=== PATIENT | female | born 1970 | race Caucasian/White ===

== ENCOUNTER 2022-11-07 09:29 | Outpatient (OUT) | payer OTHER, SELFPAY ==
--- NOTE | 2022-11-07 09:32 | P.CN_ITS ---
Consult Note: HPI Data of Consult Patient: known to practice within the last 3 years Consult date: 11/07/22 Requesting Physician: VICK LINDSAY NP Primary Care Provider: Non-Staff Physician, MD Consult Narrative Narrative: Patient is here for f/u of neck pain . MRI and PT was ordered. Patient never went to PT. Pain today is in both sides of neck and shoulders . No radicular sx. No new sensorimotor or bowel or bladder issues. No adverse medication SE. Medication regimen assists patient with being better able to complete ADLs. We d iscussed following through with PT this time in order to get MRI. No MRI on file. She is in agreement. cc:: CC: VICK LINDSAY NP Review of Systems ROS Status of ROS 10 or more systems reviewed and unremarkable except as noted in history and below Musculoskeletal Reports: neck pain Exam Constitutional Documenting provider has reviewed patient's vital signs: yes Common normals: no apparent distress, average body habitus, oriented x3, healthy appearing, alert and well nourished General appearance: cooperative, comfortable and well developed Orientation/consciousness: Yes awake, Yes oriented to person, Yes oriented to place and Yes oriented to time HENMT Common normals: normocephalic and moist oral mucous membranes Respiratory Common normals: normal respiratory effort, no retractions and no use of accessory muscles Effort & inspection: able to speak in complete sentences and symmetric chest movement Back & Pelvis Other: muscle strength 4/5 bilat UE with intact sensation no arm drift cervical pain with all ROM heaviness to bilat upper arms. Extremity Common normals: normal to inspection, full ROM and normal capillary refill Assessment and Plan Assessment and Plan (1) Cervical spondylosis: (2) Muscle spasm: Plan PT and c-spine MRI
== END 2022-11-07 09:30 | disposition home or self-care (01) ==
PROVIDERS: Visit Provider Nurse Practitioner
DX: M54.2 Cervicalgia (principal); M25.512 Pain in left shoulder; M25.511 Pain in right shoulder; M47.812 Spondylosis without myelopathy or radiculopathy, cervical region; M62.838 Other muscle spasm
CPT/HCPCS: G0463

== ENCOUNTER 2022-11-11 13:39 | Outpatient (RCR) | payer OTHER, SELFPAY | END 2022-12-12 15:39 | disposition home or self-care (01) | LOC: PT 13:39 | PROVIDERS: Visit Provider Nurse Practitioner | DX: M47.812 Spondylosis without myelopathy or radiculopathy, cervical region (principal) | CPT/HCPCS: 97110; 97161 ==

== ENCOUNTER 2024-10-29 12:27 | Emergency (ER) | payer OTHER, SELFPAY ==
[2024-10-29 12:31] VITALS: BP 151/78; PULSE 109; TEMP 36.4; O2SAT 97; BMI 21.1
--- NOTE | 2024-10-29 12:41 | ED.GENADUL1 ---
HPI HPI - General Adult General Chief complaint: Anxiety Stated complaint: ANXIETY Time Seen by Provider: 10/29/24 12:33 Source: patient Mode of arrival: walk-in Limitations: no limitations History of Present Illness HPI narrative: 54-year-old female presents for anxiety. She is not suicidal. She has been under a lot of stress recently because she states her apartment and the whole building and is infested with bedbugs. She has been leaving sometimes during the day but not sleeping elsewhere, she is sleeping in her apartment. She does not have any bedbug bites right now but she sees them in her home. 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 Related Data Home Medications �Medication �Instructions �Recorded �Confirmed atorvastatin 40 mg tablet 40 mg PO DAILY 11/07/22 10/29/24 canagliflozin 300 mg tablet 300 mg PO DAILY 11/07/22 10/29/24 (Invokana) celecoxib 100 mg capsule (Celebrex) 100 mg PO BID 11/07/22 10/29/24 citalopram 40 mg tablet 40 mg PO DAILY 11/07/22 10/29/24 metformin 1,000 mg tablet 1,000 mg PO BID 11/07/22 10/29/24 omeprazole 20 mg capsule,delayed 20 mg PO BID 11/07/22 10/29/24 release quetiapine 100 mg tablet (Seroquel) 100 mg PO DAILY 11/07/22 10/29/24 tizanidine 4 mg capsule 4 mg PO .hs PRN muscle spasticity 11/07/22 10/29/24 topiramate 50 mg tablet (Topamax) 50 mg PO DAILY 11/07/22 10/29/24 trazodone 50 mg tablet 50 mg PO DAILY 11/07/22 10/29/24 vitamin B complex 1 cap PO DAILY 11/07/22 10/29/24 Previous Rx's �Medication �Instructions �Recorded lorazepam 1 mg tablet (Ativan) 1 mg PO Q8H PRN anxiety 5 days #14 10/29/24 tabs Allergies Allergy/AdvReac Type Severity Reaction Status Date / Time No Known Drug Allergies Allergy Verified 11/07/22 11:57 Review of Systems ROS Narrative A ten point review of systems is negative except as noted above. PFSH PFSH Social History Little interest or pleasure in doing things: not at all Feeling down, depressed, or hopeless: not at all Exam Narrative Exam Narrative: Nurses note and vital signs reviewed and patient is not hypoxic. General: The patient appears well and in no apparent distress. Patient is resting comfortably on cart. Skin: Warm, dry, no pallor noted. There is no rash noted. Head: Normocephalic, atraumatic Eye: Normal conjunctiva, no drainage Ears, Nose, Mouth, and Throat: oral mucosa is moist. Nares patent. Cardiovascular: Regular Rate and Rhythm Respiratory: Patient is in no distress, no accessory muscle use, lungs are clear to auscultation, no wheezing, rales or rhonchi Back: non-tender GI: Soft and nontender Musculoskeletal: No joint swelling Neurological: A&O, normal speech Psychiatric: Cooperative, appears somewhat anxious Constitutional Vital Signs, click to edit/add: Last Vital Signs Temp 97.5 F L 10/29/24 12:31 Pulse 109 H 10/29/24 12:31 Resp 18 10/29/24 12:31 BP 151/78 H 10/29/24 12:31 Pulse Ox 97 10/29/24 12:31 O2 Del Method Room Air 10/29/24 12:31 Course Vital Signs Vital signs: Vital Signs Temperature 97.5 F L 10/29/24 12:31 Pulse Rate 109 H 10/29/24 12:31 Respiratory Rate 18 10/29/24 12:31 Blood Pressure 151/78 H 10/29/24 12:31 Pulse Oximetry 97 10/29/24 12:31 Oxygen Delivery Method Room Air 10/29/24 12:31 Temperature 97.5 F L 10/29/24 12:31 Pulse Rate 109 H 10/29/24 12:31 Respiratory Rate 18 10/29/24 12:31 Blood Pressure 151/78 H 10/29/24 12:31 Pulse Oximetry 97 10/29/24 12:31 Oxygen Delivery Method Room Air 10/29/24 12:31 Medical Decision Making MDM Narrative Medical decision making narrative: She is provided a short course of Ativan, fourteen 1 mg tablets. Follow-up with family physician and she was provided list. Treatment diagnosis and follow-up were discussed with the patient. Differential Diagnosis Differential Diagnosis: Situational anxiety Discharge Plan Discharge Chief Complaint: Anxiety Clinical Impression: Acute anxiety Patient Disposition: Home, Self-Care Time of Disposition Decision: 12:39 Condition: Good Mode of Transportation: Private Vehicle Prescriptions / Home Meds: New lorazepam [Ativan] 1 mg tablet 1 mg PO Q8H PRN (Reason: anxiety) 5 Days Qty: 14 0RF No Action vitamin B complex Capsule 1 cap PO DAILY celecoxib [Celebrex] 100 mg capsule 100 mg PO BID citalopram 40 mg tablet 40 mg PO DAILY Invokana 300 mg tablet 300 mg PO DAILY quetiapine [Seroquel] 100 mg tablet 100 mg PO DAILY topiramate [Topamax] 50 mg tablet 50 mg PO DAILY atorvastatin 40 mg tablet 40 mg PO DAILY metformin 1,000 mg tablet 1,000 mg PO BID omeprazole 20 mg capsule,delayed release(DR/EC) 20 mg PO BID tizanidine 4 mg capsule 4 mg PO .hs PRN (Reason: muscle spasticity) trazodone 50 mg tablet 50 mg PO DAILY Print Language: Bengali Instructions: Anxiety (ED) Referrals: Physician,Non-Staff, MD [Primary Care Provider] - 1 week
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
== END 2024-10-29 12:46 | disposition home or self-care (01) ==
PROVIDERS: Emergency Provider Emergency Medicine
DX: F41.9 Anxiety disorder, unspecified (principal)
CPT/HCPCS: 99283